=== PATIENT | male | born 1980 | race Caucasian/White ===

== ENCOUNTER 2017-09-19 13:56 | Emergency (ER) | payer OTHER ==
[2017-09-19 15:00] LABS: INFLUENZA A PATIENT NEGATIVE (NEGATIVE); INFLUENZA B PATIENT POSITIVE (NEGATIVE); OBC FLU VALID
== END 2017-09-19 15:10 | disposition home or self-care (01) ==
LOC: ER 13:56
DX: J10.1 Influenza due to other identified influenza virus with other respiratory manifestations (principal)
CPT/HCPCS: 87804; 87804-59; 99284